=== PATIENT | female | born 1975 | race Caucasian/White ===

== ENCOUNTER 2022-01-26 08:10 | Emergency (ER) | payer BC ==
[~2022-01-26] VITALS: Ht 165.1 cm; Wt 79.1 kg
[2022-01-26 08:12] VITALS: TEMP 98.8
[2022-01-26] MEDS ORDERED: ZESTRIL 5MG5 MG PO (08:23)
[2022-01-26] MEDS ORDERED: HCTZ12.5TAB PO (08:24)
[2022-01-26 08:26] LABS: BASO % 0.2 % (0.0-2.0); EOS % 0.1 % (0.0-4.0); GRAN % 78.1 % (42.2-75.2); HEMATOCRIT 40.6 % (37.0-47.0); HEMOGLOBIN 13.3 g/dl (12.5-16.0); LYMPH # 3.5 K/mm3 (1.2-3.4); MEAN CELL VOLUME 82 fl (80.0-100.0); MEAN CORPUSCULAR HEMOGLOBIN 27 pg (27-31); MEAN CORPUSCULAR HGB CONC 33 g/dl (33.0-37.0); MEAN PLATELET VOLUME 11.1 fl (7.4-10.4); MONO # 1.1 K/mm3 (0.1-0.6); MONO % 5.2 % (1.7-9.3); PLATELET COUNT 487 K/mm3 (130-400); RED BLOOD COUNT 4.94 M/mm3 (4.10-5.30); REDCELL DISTRIBUTION WIDTH-CV 14.6 % (11.5-14.5)
[2022-01-26 08:45] LABS: ALBUMIN 3.9 gm/dL (3.5-5.0); BILIRUBIN,TOTAL 0.8 mg/dL (0.2-1.2); CALCIUM 8.9 mg/dL (8.4-10.2); CREATININE, serum 0.83 mg/dL (0.57-1.11); POTASSIUM 3.6 mmol/L (3.5-4.5); TOTAL PROTEIN 7.5 gm/dL (6.2-8.1)
[2022-01-26 09:02] LABS: COLLECTION METHOD CLEAN CATCH
[2022-01-26 09:10] LABS: MUCOUS Present (NOT PRESENT); PH 5 (5-8); SQUAMOUS EPITHELIAL 20-50 /hpf (0-10); URINE APPEARANCE Cloudy (CLEAR/HAZY); URINE BACTERIA Rare /hpf (NONE SEEN); URINE BILIRUBIN Negative (NEGATIVE); URINE BLOOD Negative (NEGATIVE); URINE COLOR Yellow (YELLOW); URINE GLUCOSE 3+ (NEGATIVE); URINE KETONE 1+ (NEGATIVE); URINE LEUKOCYTE ESTERASE Negative (NEGATIVE); URINE NITRATE Negative (NEGATIVE); URINE PROTEIN(semi-quant) 1+ (NEGATIVE); URINE RBC 0-2 /hpf (0-2); URINE UROBILINOGEN Negative (NEGATIVE)
[2022-01-26 09:18] LABS: TRICYCLIC ANTIDEPRESS URINE NEGATIVE
[2022-01-26 13:00] VITALS: BP 174/115; PULSE 92
== END 2022-01-26 13:14 | disposition short-term general hospital (02) ==
LOC: COL.ER 08:10
PROVIDERS: Student in an Organized Health Care Education/Training Program
DX: G35 Multiple sclerosis (principal); I10 Essential (primary) hypertension; R20.2 Paresthesia of skin; E11.9 Type 2 diabetes mellitus without complications; Z79.899 Other long term (current) drug therapy; Z79.84 Long term (current) use of oral hypoglycemic drugs

== ENCOUNTER → 2022-06-19 | Outpatient (CLI) | payer BC ==
[~2022-06-19] MED LIST: ASPIRIN E.C. 8181 MG PO; HCTZ12.5TAB PO; JARDIANCE25; LEVEMIR FLEX100 U/ML SQ; LIPITOR 80MG80 MG PO; NEURONTIN600 MG/TAB PO; NORVASC 10MG10 MG PO; PLAVIX 75MG TAB75 MG PO; PRINIVIL40 MG PO; ZESTRIL 5MG5 MG PO
== END ==
LOC: DIA.ED 08:59
DX: E11.65 Type 2 diabetes mellitus with hyperglycemia (principal); Z79.4 Long term (current) use of insulin; E78.5 Hyperlipidemia, unspecified; I10 Essential (primary) hypertension
CPT/HCPCS: G0108

== ENCOUNTER → 2022-10-02 | Outpatient (CLI) | payer BC, MEDICAID | LOC: MC.RAD 13:34 | DX: Z12.31 Encounter for screening mammogram for malignant neoplasm of breast (principal) ==

== ENCOUNTER → 2024-04-15 | Day surgery (SDC) | payer OTHER ==
[~2024-04-15] MED LIST changes: +B-121000 MCG PO; +Glycopyrrolate 0.2 MG/ML 1 ML VIAL ONE; +Ketorolac 30 MG/ML VIAL ONE; +Lidocaine PF 2% (20 MG/ML) 5 ML VIAL ONE; +NATURAL IRON65 MG PO; +NS 10 ML IV ONE; +NS 100 ML IV ONE; +Ondansetron 4 MG/2 ML VIAL ONE; +Phenylephrine 10 MG/ML VIAL ONE; +Rocuronium 50 MG/5 ML Multi-Dose VIAL ONE; +VITAMIN B650 MG PO; +dexAMETHasone 10 MG/ML VIAL ONE; +fentaNYL 50 MCG/ML 5 ML VIAL ONE
== END ==
LOC: SDCO 10:10
PROVIDERS: Surgery
DX: K80.64 Calculus of gallbladder and bile duct with chronic cholecystitis without obstruction (principal); K42.9 Umbilical hernia without obstruction or gangrene; K46.9 Unspecified abdominal hernia without obstruction or gangrene; D72.829 Elevated white blood cell count, unspecified; E11.319 Type 2 diabetes mellitus with unspecified diabetic retinopathy without macular edema; I69.354 Hemiplegia and hemiparesis following cerebral infarction affecting left non-dominant side; I10 Essential (primary) hypertension; G62.9 Polyneuropathy, unspecified; Z79.84 Long term (current) use of oral hypoglycemic drugs
CPT/HCPCS: J0690; J1100; J1885; J2371; J2405; J2704; J3010